=== PATIENT | female | born 1990 | race Caucasian/White ===

== ENCOUNTER 2019-11-27 12:05 | Outpatient (CLI) | payer OTHER ==
[~2019-11-27] VITALS: Ht 162.6 cm; Wt 73.6 kg
[2019-11-27] MEDS ORDERED: MAPA500T2 PO (12:19)
[2019-11-27] MEDS ORDERED: PRENTAB9 PO (12:19)
[2019-11-27 12:24] VITALS: BP 121/72
[2019-11-27] MEDS ORDERED: LR 1,000 ML IV SCH (12:45)
[2019-11-27] MEDS ORDERED: LACTATED RINGER'S 1000 ML IV STA (12:45)
[2019-11-27] MEDS ORDERED: ONDANSETRON 4MG/2ML VIAL (J2405) IV ONE (13:00)
[2019-11-27] MEDS ORDERED: FAMOTIDINE 20 MG TAB PO ONE (14:00)
[2019-11-27 14:19] VITALS: BP 115/65
[2019-11-27] MEDS ORDERED: PANTOPRAZOLE 40MG INJ (PROTONIX) (C9113) IV ONE (15:00)
--- NOTE | 2019-11-27 16:12 | IPNPDOC ---
Text Note Date of Service The patient was seen on 11/27/19. NOTE Triage Note Nova is a 29yo with SIUP at approx 36wk presenting for 24hr PO intolerance. She states she started having nausea/vomiting yesterday morning, wasn't able to eat anything all day or last night. Also feeling acid reflux which contributes to the nausea. No fevers/chills. No loss of fluid, no vaginal bleeding. She is having ctx. Good movement. 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 Unchanged on repeat >2hr later Cat I FHRT with +accels, -decels, mod heather [place]: ctx q5 min Assessment: Nova is a 29yo with SIUP at approx 36wk with n/v likely related to viral gastroenteritis. She received 1L LR IVF, 8mg IV zofran, and 40mg IV protonix with resolution of n/v and ability to tolerate PO intake. Vitals wnl, benign exam. Not currently in labor with unchanged SCE over 2hr though she is having ctx. Reassuring status. Plan: -Safe for discharge home -discussed BRAT diet and increased hydration -discussed labor and return precautions -keep next routine OB appt scheduled on this week -GBS swab collected in the event that she advances into labor before next visit MD FLORIDALMA Valentine,Jordan, I+O VS, Jordan, I+O Vital Signs Date Time Temp Pulse Resp B/P (MAP) Pulse Ox O2 Delivery O2 Flow Rate FiO2 11/27/19 12:24 98.5 93 16 121/72 (88) 98.5 Mylene Mckeon MD Nov 27, 2019 13:09
== END 2019-11-27 16:21 | disposition home or self-care (01) ==
LOC: M LDO 12:05
PROVIDERS: ATTEND Obstetrics & Gynecology
DX: O21.9 Vomiting of pregnancy, unspecified (principal); Z3A.36 36 weeks gestation of pregnancy
CPT/HCPCS: 59025; 87081; 96374; 96375; C9113; G0378; G0463; J2405

== ENCOUNTER 2019-12-07 16:15 | Outpatient (CLI) | payer OTHER ==
[~2019-12-07] VITALS: Ht 162.6 cm; Wt 79.0 kg
[~2019-12-07 16:15] MED LIST: MAPA500T2 PO; PRENTAB9 PO
[2019-12-07 16:34] VITALS: BP 121/81
[2019-12-07 17:09] VITALS: BP 128/80
--- NOTE | 2019-12-07 18:28 | IPNPDOC ---
Text Note Date of Service The patient was seen on 12/07/19. NOTE zunilda is a 29 yo @ 37+3wks gestation presents with concern for regular contractions. denies lof/vb. +FM vitals: reviewed, normal nd abd: gravid, soft, nt fht: 135/mod heather/pos accel/no decel toco: ctx q 4mins ce: - (per nursing exam) a/p patient is @ 37+3wks, no in active labor. discussed with patient option of going home and come back if she continue to have regular painful contractions in 2hrs vs. staying in l&d and get recheck in 2 hrs. patient desires to go home and come back if she continues to have regular contractions. return precautions given. f/u prn. do joseph VS,Jordan, I+O VS, Fishbone, I+O Vital Signs Date Time Temp Pulse Resp B/P (MAP) Pulse Ox O2 Delivery O2 Flow Rate FiO2 12/07/19 17:09 77 18 128/80 (96) 12/07/19 16:34 97.8 SHIELA LANDRY DO Dec 07, 2019 18:28
--- NOTE | 2019-12-08 15:01 | IPNPDOC ---
Text Note Date of Service The patient was seen on 12/08/19. NOTE Patient is a 28yo 37.5wks by LMP c/w 14wk US. C/o decreased movement. No contractions, bleeding or loss of fluid. FHT Category 1, 140s, reactive, no decels, irregular contractions. Patient was reassured of reassuring status. Patient given kick count instructions and labor and SROM precautions. Discharged home. She will contact our [facility] on 12/12/2019 for a follow up appt. VS,Fishbone, I+O VS, Fishbone, I+O Vital Signs Date Time Temp Pulse Resp B/P (MAP) Pulse Ox O2 Delivery O2 Flow Rate FiO2 12/07/19 17:09 77 18 128/80 (96) 12/07/19 16:34 97.8 Loraine Bear MD Dec 08, 2019 15:01
== END 2019-12-07 17:21 | disposition home or self-care (01) ==
LOC: M LDO 16:15
PROVIDERS: ATTEND Obstetrics & Gynecology
DX: O47.1 False labor at or after 37 completed weeks of gestation (principal); Z3A.37 37 weeks gestation of pregnancy; Z79.899 Other long term (current) drug therapy
CPT/HCPCS: 59025; G0378; G0463

== ENCOUNTER 2019-12-17 07:04 | Inpatient (IN) | payer OTHER ==
[2019-12-17] VITALS (18 sets, daily range): BP systolic 105–144; BP diastolic 57–83
[~2019-12-17] VITALS: Ht 162.6 cm; Wt 77.5 kg
[2019-12-17] MEDS ORDERED: LACTATED RINGER'S 1000 ML IV STA (08:02)
[2019-12-17 08:48] LABS: HEMATOCRIT 36.7 % (36.0-47.0); HEMOGLOBIN 11.6 g/dl (12.0-15.5); MEAN CORPUSCULAR HEMOGLOBIN 27.9 pg (27.0-33.0); MEAN CORPUSCULAR HGB CONC 31.6 g/dl (32.0-36.5); MEAN CORPUSCULAR VOLUME 88.2 fl (80.0-96.0); PLATELET COUNT, AUTOMATED 200 10^3/uL (150-450); RED BLOOD COUNT 4.16 10^6/uL (4.00-5.40)
[2019-12-17] MEDS ORDERED: LR 1,000 ML IV SCH (09:00)
--- NOTE | 2019-12-17 09:58 | HPEPDOC ---
Obstetrical History & Physical General Date of Admission Dec 17, 2019 at 07:37 History of Present Illness patient is a 29 yo @ 38+6wks gestation presents with concern for LOF at 0600 this AM. Denies ctx/vb. 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 BREAST: . ABDOMEN: Gravid and non-tender to touch. FETUS: fetus is vertex (VTX) by Ted. efw 3200gm HEART RATE: Regular rate and rhythm. LUNGS: Clear to auscultation (CTA). EXTREMITIES: No edema/erythema/tenderness grossly ruptured with clear fluid Vital Signs/I&O Vital Signs Date Time Temp Pulse Resp B/P (MAP) Pulse Ox O2 Delivery O2 Flow Rate FiO2 12/17/19 07:51 98.3 89 18 136/83 (100) Laboratory Data 24H LABS Laboratory Tests 2 12/17/19 07:42: Serology Scanned Report Hepatitis B Testing 12/17/19 08:33: Nucleated Red Blood Cells % (auto) 0.0 CBC/BMP Laboratory Tests 12/17/19 08:33 Pertinent Laboratoy Data Blood Type: A+ RBC Antibody Screen: Negative Hepatitis B: Negative Rapid Plasma Reagin: Nonreactive Rubella: Immune Group B Streptococcus: Negative Anatomy Ultrasound Placenta Location: Posterior Normal Anatomy: Yes Placenta Previa: No Vaginal Examination Dilation: 2cm Effacement: 80% Station: -3 Cervical Consistency: Soft Cervical Position: Anterior Presentation: Cephalic presentation Assessment Heart Rate (FHR): 145 Variability: Moderate Accelerations: Positive Decelerations: None Tocometer Contractions: No Assessment/Plan Assessment Patient is a 27 yo G1 @ 38+6wks gestation admitted for PROM at 0600 this am. She is not lynn at this point. Discussed option of starting pit vs. waiting to see if her contractions start on their own. Patient would like to wait about 4-5hrs after ROM. She is amendable to IOL with oxytocin. External as well as internal monitoring of contractions and FHT discussed. Risks of emergent delivery, infection requiring antibiotics, bleeding requiring blood transfusion and associated risks, use of forceps or vacuum for operative vaginal delivery in an emergency, and episiotomy explained to patient. Plan Admit and orient. Repair Weaver and consent. Diet: clear Group B Streptococcus (GBS) negative Labs and intravenous (IV) per unit protocol. Counseled on Pitocin and induction of labor anesthesia consult pelvis proven SHIELA LANDRY DO Dec 17, 2019 09:51
[2019-12-17] MEDS ORDERED: OXYTOCIN DRIP 30 UNITS in IV 1 EA IV SCH ×2 (11:00→18:45)
[2019-12-17] MEDS ORDERED: BUTORPHANOL 2 MG/ML INJ (J0595) IV ONE (16:45)
[2019-12-17] MEDS ORDERED: PROMETHAZINE INJ 25 MG/ML VIAL (J2550) IV ONE (16:45)
[2019-12-17] MEDS ORDERED: FENTANYL 2MCG/ML ROPIVACAINE 0.2% IN 0.9% NACL 100ML IVBAG As Ordered ONE (17:27)
--- NOTE | 2019-12-17 17:30 | IPNPDOC ---
Text Note Date of Service The patient was seen on 12/17/19. NOTE Come to assess patient with concern for urge to push. pit: 10mU/min fht: 140/mod heather/pos accel/early decels toco: ctx q 2-3mins ce: 7/c/0 a/p Patient in active labor. patient requested epidural. continue to monitor. expect vaginal delivery. VS,Fishbone, I+O VS, Fishbone, I+O Laboratory Tests 12/17/19 08:33 Vital Signs Date Time Temp Pulse Resp B/P (MAP) Pulse Ox O2 Delivery O2 Flow Rate FiO2 12/17/19 13:42 98.0 90 18 113/68 (83) SHIELA LANDRY DO Dec 17, 2019 17:30
[2019-12-17] MEDS ORDERED: LACTATED RINGER'S 1000 ML IV PRN (18:15)
[2019-12-17] MEDS ORDERED: REFRIGERATOR IV KEYS XX PRN (18:15)
[2019-12-17] MEDS ORDERED: EPIDURAL/PCA KEYS XX PRN (18:15)
[2019-12-17] MEDS ORDERED: NALOXONE INJ 0.4 MG/1 ML VIAL (J2310) IV PRN (18:15)
[2019-12-17] MEDS ORDERED: EPIDURAL COMMENT XX SCH (18:15)
[2019-12-17] MEDS ORDERED: ePHEDrine SULFATE 25 MG/5 ML(5MG/ML) SYRINGE IV PRN (18:15)
[2019-12-17] MEDS ORDERED: FENTANYL/ROPIVACAINE/NACL BAG 100 ML EPIDURAL SCH (18:15)
[2019-12-17] MEDS ORDERED: ONDANSETRON 4MG/2ML VIAL (J2405) IV PRN (18:15)
[2019-12-17] MEDS ORDERED: diphenhydrAMINE INJ 50MG/ML VIAL (J1200) IV PRN (18:15)
--- NOTE | 2019-12-17 18:42 | DNPDOC ---
[facility] Delivery Note Delivery Note DATE OF DELIVERY: 12/17/2019 PREDELIVERY DIAGNOSIS: 1) at 38+6/7 weeks' gestation 2) premature rupture of membranes POST DELIVERY DIAGNOSIS: Delivered. PROCEDURE: Spontaneous vaginal delivery WATERMELON INSPECTOR: Dr. Raya Peñaloza DO ANESTHESIA: epidural ESTIMATED BLOOD LOSS: 300mL. FINDINGS: 7lbs 12oz, female , Score 8/9 DELIVERY SUMMARY: With good maternal effort, baby delivered LOT. Anterior shoulder delivered, followed by posterior shoulder. body followed. Baby placed on maternal abdomen. Cord allowed to stop pulsating. Cord clamped x 2 and cut by FOB. Pitocin bolus started. Placenta delivered spontaneously. fundus massaged firm. Inspection reveals no laceration. baby and mother bonding when I left the room. DO GRIS Peñaloza LUAT N. DO Dec 17, 2019 18:42
[2019-12-17] MEDS ORDERED: DOCUSATE SODIUM 100 MG CAP PO PRN (18:45)
[2019-12-17] MEDS ORDERED: MEASLES,MUMPS,RUBELLA VACCINE INJ (MMR-II) (90707) SC SCH (18:45)
[2019-12-17] MEDS ORDERED: DIBUCAINE 1% OINTMENT 30GM TOP PRN (18:45)
[2019-12-17] MEDS ORDERED: RHOGAM 300 MCG (1500 IU) INJ (J2790) IM SCH (18:45)
[2019-12-17] MEDS ORDERED: ACETAMINOPHEN TAB 650MG DOSE (2X325MG) PO PRN (18:45)
[2019-12-17] MEDS: IBUPROFEN 800 MG TAB PO PRN (20:19)
[2019-12-18] MEDS: IBUPROFEN 800 MG TAB PO PRN ×3 (05:07→22:04)
[2019-12-18 06:00] VITALS: BP 131/83
--- NOTE | 2019-12-18 06:45 | IPNPDOC ---
Progress Note Date of Service: Dec 18, 2019 Day#: 1 Progress Note SUBJECT: Patient is a 29 s/p PPD #1. Delivered yesterday evening. She has no concerns today. She has been ambulating, voiding spontaneously without issue and tolerating regular diet. Breast feeding without issue. Reports lochia is light. Plans on IUD for contraceptive. OBJECTIVE: VITAL SIGNS: Within normal limits, afebrile. Alert and oriented times three. Abdomen: Fundus firm at U-2. Soft, NTTP. LE: no edema/erythema/tenderness A/P PPD #2, doing well. encourage bf. contraceptive counseling. likely discharge tomorrow since delivery in evening. Le, DO VS, I&O, 24H, Fishbone Vital Signs/I&O Vital Signs Date Time Temp Pulse Resp B/P (MAP) Pulse Ox O2 Delivery O2 Flow Rate FiO2 12/18/19 06:00 98.0 68 16 131/83 (99) 96 Room Air I&O- Last 24 Hours up to 6 AM 12/18/19 06:00 Intake Total 1258 ml Output Total 300 ml Balance 958 ml Laboratory Data 24H LABS Laboratory Tests 2 12/17/19 07:42: Serology Scanned Report Hepatitis B Testing 12/17/19 08:33: Nucleated Red Blood Cells % (auto) 0.0 CBC/BMP Laboratory Tests 12/17/19 08:33 SHIELA LANDRY DO Dec 18, 2019 06:45
[2019-12-18] MEDS ORDERED: PRENATAL VITAMINS CHEWABLE TABLET PO SCH (09:00)
[2019-12-18 17:47] VITALS: BP 137/85
[2019-12-19 06:00] VITALS: BP 121/78
[2019-12-19] MEDS: IBUPROFEN 800 MG TAB PO PRN (06:56)
--- NOTE | 2019-12-19 07:41 | IPNPDOC ---
Progress Note Date of Service: Dec 19, 2019 Day#: 2 Progress Note SUBJECT: Patient is a 29-year-old 2 now Para 2 status post uncomplicated spontaneous vaginal delivery. Doing well day # 2. She has been ambulating, voiding spontaneously without issue and tolerating regular diet. Breast feeding without issue. Reports lochia is like a normal period. Patient is ambulating well. Reports some cramping with . Denies any pain. Voiding without difficulty. OBJECTIVE: VITAL SIGNS: Within normal limits, afebrile. Alert and oriented times three. Breasts without erythema and nontender Breath sounds clear to auscultation. Heart rate: Regular rate and rhythm, no murmurs, rubs or gallops. Abdomen: Fundus firm at U-2. Soft, NTTP. Minimal lochia. Perineum intact. ASSESSMENT: Patient is a 29-year-old 2 now Para 2 status post uncomplicated spontaneous vaginal delivery. Doing well on day 2. Vitals within normal limits, afebrile, hemodynamically stable with no evidence of infection. PLAN: 1. Discharge to home today. 2. Tylenol and Motrin for pain. 3. Encourage breast feeding and ambulation. 4. IUD for contraception. 5. Routine PP visit in 6 weeks in clinic. 6. Discussed return precautions at length. VS, I&O, 24H, Fishbone Vital Signs/I&O Vital Signs Date Time Temp Pulse Resp B/P (MAP) Pulse Ox O2 Delivery O2 Flow Rate FiO2 12/19/19 06:00 98.9 68 16 121/78 (92) 97 Room Air Loarine Bear MD Dec 19, 2019 07:41
[2019-12-19] MEDS ORDERED: DOCU100C16 PO (07:43)
[2019-12-19] MEDS ORDERED: IBUP80TA PO (07:43)
[2019-12-19] MEDS ORDERED: DIBU10OI TOP (07:43)
== END 2019-12-19 10:45 | disposition home or self-care (01) | DRG 807 ==
LOC: M LDO 07:04 → M LDI 07:37 → M OBS 21:53
PROVIDERS: ADMIT Obstetrics & Gynecology; ATTEND Obstetrics & Gynecology
PROC: 10E0XZZ Delivery of Products of Conception, External Approach (ICD-10-PCS; principal; 2019-12-17)
DX: O42.02 Full-term premature rupture of membranes, onset of labor within 24 hours of rupture (principal); Z37.0 Single live birth; Z3A.38 38 weeks gestation of pregnancy